=== PATIENT | female | born 1975 | race Asian ===

== ENCOUNTER 2019-07-02 16:50 | Emergency (ER) | payer OTHER, BC ==
[~2019-07-02] VITALS: Ht 157.5 cm; Wt 49.0 kg
[2019-07-02 17:23] VITALS: BP 113/71
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
[2019-07-02] MEDS ORDERED: ORPH100T PO (18:56)
[2019-07-02] MEDS ORDERED: IBUP-1027 PO (18:56)
== END 2019-07-02 19:02 | disposition home or self-care (01) ==
LOC: ER 16:50
DX: R51 Headache (principal); G89.11 Acute pain due to trauma; M54.5 Low back pain; M54.6 Pain in thoracic spine; M54.2 Cervicalgia; Z88.0 Allergy status to penicillin; V47.5XXA Car driver injured in collision with fixed or stationary object in traffic accident, initial encounter; Y93.89 Activity, other specified; Y92.488 Other paved roadways as the place of occurrence of the external cause; Y99.8 Other external cause status
CPT/HCPCS: 70450; 72125; 72128; 72131; 99284

== ENCOUNTER 2020-03-29 17:23 | Emergency (ER) | payer BC, OTHER ==
[~2020-03-29] VITALS: Ht 144.8 cm; Wt 50.0 kg
[~2020-03-29 17:23] MED LIST: IBUP-1027 PO; ORPH100T PO
[2020-03-29 20:11] LABS: BILIRUBIN,URINE NEGATIVE (NEG); CLARITY,URINE CLEAR; COLOR,URINE RED; NITRITE,URINE NEGATIVE (NEG); PROTEIN,URINE 100 mg/dL (NEG-TRACE); UROBILINOGEN,URINE 0.2 mg/dL (0.2 mg/dL)
[2020-03-29 20:24] LABS: BACTERIA,URINE FEW /HPF (0-FEW); RBC,URINE TNTC /HPF (0-2); WBC,URINE >40 /HPF (0-4)
[2020-03-29 20:26] LABS: AMPHETAMINE/METHAMPHETAMINE NEG (NEG); BARBITURATES NEG (NEG); BENZODIAZEPINES NEG (NEG); CANNABINOIDS NEG (NEG); COCAINE NEG (NEG); METHADONE NEG (NEG); OPIATES NEG (NEG); PHENCYCLIDINE NEG (NEG)
[2020-03-29 20:30] LABS: BASO % 1 % (0-3); EOS # 0.1 x10^3/uL (0.0-0.7); EOS % 1 % (0-3); HEMATOCRIT 38.3 % (36.0-47.0); HEMOGLOBIN 13.4 g/dL (12.0-15.5); LYMPH # 1.8 x10^3/uL (1.0-4.8); LYMPH % 23 % (24-48); MEAN CORPUSCULAR HEMOGLOBIN 33 pg (25-35); MEAN CORPUSCULAR HGB CONC 35 g/dL (31-37); MEAN CORPUSCULAR VOLUME 95 fL (79-100); MONO # 0.6 x10^3/uL (0.0-1.1); MONO % 8 % (0-9); NEUT # 5.1 x10^3/uL (1.8-7.7); NEUT % 67 % (31-73); PLATELET COUNT 184 x10^3/uL (140-400); RED BLOOD COUNT 4.02 x10^6/uL (3.50-5.40); RED CELL DISTRIBUTION WIDTH 12.5 % (11.5-14.5); WHITE BLOOD COUNT 7.6 x10^3/uL (4.0-11.0)
[2020-03-29 20:42] LABS: CALCIUM 8.7 mg/dL (8.5-10.1); CREATININE 0.6 mg/dL (0.6-1.0); GFR 107.6; POTASSIUM 3.5 mmol/L (3.5-5.1)
[2020-03-29] MEDS ORDERED: ONDANSETRON PF 4 MG/2 ML VIAL. IVP ONE (20:45)
[2020-03-29] MEDS ORDERED: MORPHINE SULFATE 10 MG/ML VIAL. IV ONE ×2 (20:45→22:00)
[2020-03-29 20:48] LABS: ALBUMIN 3.8 g/dL (3.4-5.0); TOTAL BILIRUBIN 0.6 mg/dL (0.2-1.0); TOTAL PROTEIN 7.6 g/dL (6.4-8.2)
--- NOTE | 2020-03-29 21:00 | RAD ---
Study: CT abdomen/pelvis without intravenous contrast Indication: Bilateral flank pain. Comparison: None. Technique: Helical CT imaging performed of the abdomen and pelvis without the use of intravenous contrast. Sagittal and coronal reformats were obtained. One or more of the following individualized dose reduction techniques were utilized for this examination: 1. Automated exposure control 2. Adjustment of the mA and/or kV according to patient size 3. Use of iterative reconstruction technique. Findings: Inherently limited evaluation without intravenous contrast. Inflammatory thickening of the urinary bladder wall and inflammatory changes of the pericystic fat. No hydronephrosis. No perinephric inflammatory changes. No stone is visualized. Possible tiny angiomyolipoma on the left, image 60 series 2 though this could be interdigitation of perinephric fat. No acute abnormality at the lower chest. Unremarkable liver, gallbladder, pancreas, spleen and adrenal glands. Small fat-containing focus within the left ovary, image 152 series 2, typical of a dermoid cyst measuring up to 0.7 cm. Unremarkable right adnexa. Small amount of fluid posterior to the uterus measuring slightly greater density than simple fluid at between 16-20 Hounsfield units. No discrete abnormality of the uterus itself. No acute abnormality of the colon. The appendix is mildly prominent in transverse dimension at around 6.5 mm but there are no surrounding inflammatory changes to suggest acute appendicitis. Nonobstructed small bowel. Unremarkable stomach. Nonaneurysmal aorta. No lymphadenopathy. No pneumoperitoneum. No acute or aggressive osseous process. Impression: 1. Inflammatory wall thickening of the urinary bladder and inflammatory changes of the pericystic fat. The findings are typical of cystitis especially given history. No findings that would confirm pyelonephritis on this noncontrast exam. No collecting system obstruction or stone. 2. Small amount of fluid within the pelvis that is slightly more dense than simple fluid but still favored reactive to the presumed cystitis. 3. Subcentimeter left ovarian dermoid cyst. Electronically signed by: LUIS CARLOS OLSON MD (03/29/2020 8:57 PM) [facility]
[2020-03-29] MEDS ORDERED: CIPROFLOXACIN 400MG PREMIX 200 ML IV ONE (21:30)
[2020-03-29] MEDS ORDERED: KETOROLAC 30 MG/ML VIAL. IVP ONE (22:00)
[2020-03-29] MEDS ORDERED: CIPR500T94 PO (22:34)
[2020-03-29] MEDS ORDERED: HYDR-2759 PO (22:34)
[2020-03-29] MEDS ORDERED: ONDA4TAB7 PO (22:34)
[2020-03-29] MEDS ORDERED: PHEN100T82 PO (22:34)
--- NOTE | 2020-03-29 22:35 | PHYS DOC ---
Past Medical History Past Medical History: No Pertinent History Past Surgical History: No Surgical History Smoking Status: Never Smoker Alcohol Use: None General Adult EDM: Chief Complaint: FLANK PAIN HPI: HPI: Patient is a 44 year old Bulgarian speaking patient who presents to the ED today complaining of mild periumbilical abdominal pain, bilateral flank pain, hematuria that began today. Patient denies any fever, nausea, vomiting. Denies anything specifically exacerbating or relieving her pain. Review of Systems: Review of Systems: Constitutional: Denies fever or chills. [] Eyes: Denies change in visual acuity. [] HENT: Denies nasal congestion or sore throat. [] Respiratory: Denies cough or shortness of breath. [] Cardiovascular: Denies chest pain or edema. [] GI: Reports periumbilical abdominal pain, denies nausea, vomiting, bloody stools or diarrhea. [] : Reports hematuria and flank pain Musculoskeletal: Denies back pain or joint pain. [] Integument: Denies rash. [] Neurologic: Denies headache, focal weakness or sensory changes. [] Psychiatric: Denies depression or anxiety. [] Heart Score: Risk Factors: Risk Factors: DM, Current or recent (<one month) smoker, HTN, HLP, family his tory of CAD, obesity. Risk Scores: Score 0 - 3: 2.5% MACE over next 6 weeks - Discharge Home Score 4 - 6: 20.3% MACE over next 6 weeks - Admit for Clinical Observation Score 7 - 10: 72.7% MACE over next 6 weeks - Early Invasive Strategies Current Medications: Current Medications Medications (Trade) Dose Ordered Sig/[facility] Start Time Stop Time Status Last Admin Dose Admin Ciprofloxacin/ Dextrose 200 ml @ 200 mls/hr 1X ONCE 03/29/20 21:30 03/29/20 22:29 03/29/20 22:13 200 MLS/HR Ketorolac Tromethamine (Toradol 30mg Vial) 30 mg 1X ONCE 03/29/20 22:00 03/29/20 22:01 DC 03/29/20 22:13 30 MG Morphine Sulfate (Morphine Sulfate) 5 mg 1X ONCE 03/29/20 22:00 03/29/20 22:01 DC 03/29/20 22:14 5 MG Ondansetron HCl (Zofran) 4 mg 1X ONCE 03/29/20 20:45 03/29/20 20:46 DC 03/29/20 20:27 4 MG Allergies: Allergies: Allergies Coded Allergies Type Severity Reaction Last Updated Verified Penicillins Allergy Severe Rash 07/02/19 Yes Physical Exam: PE: Constitutional: Well developed, well nourished, no acute distress, non-toxic appearance. [] HENT: Normocephalic, atraumatic, bilateral external ears normal, oropharynx moist, no oral exudates, nose normal. [] Eyes: PERRLA, EOMI, conjunctiva normal, no discharge. [] Neck: Normal range of motion, no tenderness, supple, no stridor. [] Cardiovascular:Heart rate regular rhythm, no murmur [] Lungs & Thorax: Bilateral breath sounds clear to auscultation [] Abdomen: Bowel sounds normal, soft, no tenderness, no masses, no pulsatile masses. [] Skin: Warm, dry, no erythema, no rash. [] Back: No tenderness, mild bilateral CVA tenderness. [] Extremities: No tenderness, no cyanosis, no clubbing, ROM intact, no edema. [] Neurologic: Alert and oriented X 3, normal motor function, normal sensory functi on, no focal deficits noted. [] Psychologic: Affect normal, judgement normal, mood normal. [] Current Patient Data: Labs: Laboratory Tests Test 03/29/20 19:30 03/29/20 20:05 03/29/20 20:08 03/29/20 20:15 Urine Collection Type Unknown Urine Color Red Urine Clarity Clear Urine pH 7.0 (<5.0-8.0) Urine Specific [place] <=1.005 (1.000-1.030) Urine Protein 100 mg/dL (NEG-TRACE) Urine Glucose (UA) Negative mg/dL (NEG) Urine Ketones (Stick) Trace mg/dL (NEG) Urine Blood Large (NEG) Urine Nitrite Negative (NEG) Urine Bilirubin Negative (NEG) Urine Urobilinogen Dipstick 0.2 mg/dL (0.2 mg/dL) Urine Leukocyte Esterase Large (NEG) Urine RBC Tntc /HPF (0-2) Urine WBC >40 /HPF (0-4) Urine Bacteria Few /HPF (0-FEW) Urine Opiates Screen Neg (NEG) Urine Methadone Screen Neg (NEG) Urine Barbiturates Neg (NEG) Urine Phencyclidine Screen Neg (NEG) Urine Amphetamine/Methamphetamine Neg (NEG) Urine Benzodiazepines Screen Neg (NEG) Urine Cocaine Screen Neg (NEG) Urine Cannabinoids Screen Neg (NEG) Urine Ethyl Alcohol Neg (NEG) POC Urine HCG, Qualitative Hcg negative (Negative) White Blood Count 7.6 x10^3/uL (4.0-11.0) Red Blood Count 4.02 x10^6/uL (3.50-5.40) Hemoglobin 13.4 g/dL (12.0-15.5) Hematocrit 38.3 % (36.0-47.0) Mean Corpuscular Volume 95 fL (79-100) Mean Corpuscular Hemoglobin 33 pg (25-35) Mean Corpuscular Hemoglobin Concent 35 g/dL (31-37) Red Cell Distribution Width 12.5 % (11.5-14.5) Platelet Count 184 x10^3/uL (140-400) Neutrophils (%) (Auto) 67 % (31-73) Lymphocytes (%) (Auto) 23 % (24-48) L Monocytes (%) (Auto) 8 % (0-9) Eosinophils (%) (Auto) 1 % (0-3) Basophils (%) (Auto) 1 % (0-3) Neutrophils # (Auto) 5.1 x10^3/uL (1.8-7.7) Lymphocytes # (Auto) 1.8 x10^3/uL (1.0-4.8) Monocytes # (Auto) 0.6 x10^3/uL (0.0-1.1) Eosinophils # (Auto) 0.1 x10^3/uL (0.0-0.7) Basophils # (Auto) 0.0 x10^3/uL (0.0-0.2) Sodium Level 142 mmol/L (136-145) Potassium Level 3.5 mmol/L (3.5-5.1) Chloride Level 106 mmol/L (98-107) Carbon Dioxide Level 28 mmol/L (21-32) Anion Gap 8 (6-14) Blood Urea Nitrogen 19 mg/dL (7-20) Creatinine 0.6 mg/dL (0.6-1.0) Estimated GFR (Cockcroft-Gault) 107.6 BUN/Creatinine Ratio 32 (6-20) H Glucose Level 100 mg/dL (70-99) H Calcium Level 8.7 mg/dL (8.5-10.1) Total Bilirubin 0.6 mg/dL (0.2-1.0) Aspartate Amino Transferase (AST) 29 U/L (15-37) Alanine Aminotransferase (ALT) 40 U/L (14-59) Alkaline Phosphatase 97 U/L (46-116) Total Protein 7.6 g/dL (6.4-8.2) Albumin 3.8 g/dL (3.4-5.0) Albumin/Globulin Ratio 1.0 (1.0-1.7) Lipase 180 U/L (73-393) Ethyl Alcohol Level < 10 mg/dL (0-10) Laboratory Tests 03/29/20 20:15 Laboratory Tests 03/29/20 20:15 Vital Signs: Vital Signs Date Time Temp Pulse Resp B/P (MAP) Pulse Ox O2 Delivery O2 Flow Rate FiO2 03/29/20 19:50 98.5 84 18 131/80 (97) 100 Room Air 98.5 EKG: EKG: [] Radiology/Procedures: Radiology/Procedures: []PROCEDURE: CT ABDOMEN PELVIS WO CONTRAST Study: CT abdomen/pelvis without intravenous contrast Indication: Bilateral flank pain. Comparison: None. Technique: Helical CT imaging performed of the abdomen and pelvis without the use of intravenous contrast. Sagittal and coronal reformats were obtained. One or more of the following individualized dose reduction techniques were utilized for this examination: 1. Automated exposure control 2. Adjustment of the mA and/or kV according to patient size 3. Use of iterative reconstruction technique. Findings: Inherently limited evaluation without intravenous contrast. Inflammatory thickening of the urinary bladder wall and inflammatory changes of the pericystic fat. No hydronephrosis. No perinephric inflammatory changes. No stone is visualized. Possible tiny angiomyolipoma on the left, image 60 series 2 though this could be interdigitation of perinephric fat. No acute abnormality at the lower chest. Unremarkable liver, gallbladder, pancreas, spleen and adrenal glands. Small fat-containing focus within the left ovary, image 152 series 2, typical of a dermoid cyst measuring up to 0.7 cm. Unremarkable right adnexa. Small amount of fluid posterior to the uterus measuring slightly greater density than simple fluid at between 16-20 Hounsfield units. No discrete abnormality of the uterus itself. No acute abnormality of the colon. The appendix is mildly prominent in transverse dimension at around 6.5 mm but there are no surrounding inflammatory changes to suggest acute appendicitis. Nonobstructed small bowel. Unremarkable stomach. Nonaneurysmal aorta. No lymphadenopathy. No pneumoperitoneum. No acute or aggressive osseous process. Impression: 1. Inflammatory wall thickening of the urinary bladder and inflammatory changes of the pericystic fat. The findings are typical of cystitis especially given history. No findings that would confirm pyelonephritis on this noncontrast exam. No collecting system obstruction or stone. 2. Small amount of fluid within the pelvis that is slightly more dense than simple fluid but still favored reactive to the presumed cystitis. 3. Subcentimeter left ovarian dermoid cyst. Electronically signed by: LUIS CARLOS OLSON MD (03/29/2020 8:57 PM) [id number] DICTATED and SIGNED BY: LUIS CARLOS OLSON MD DATE: 03/29/202056 Course & Med Decision Making: Course & Med Decision Making Pertinent Labs and Imaging studies reviewed. (See chart for details) This is a 44-year-old female patient presenting to the ED today complaining of flank pain hematuria and periumbilical abdominal pain since this morning. Positive for UTI, CBC with a normal WBC, CMP with no acute findings. CT of the abdomen and pelvic noted for cystitis and left dermoid cyst that i recommended following up with an OBGYN. Patient's pain is well controlled. She was given IV fluids, pain medicine and Cipro in the ED. She is allergic to penicillins. She was offered admission but declined. She was discharged with Cipro Zofran and hydrocodone for pain. Follow-up with her own doctor in a week. Instructed to push fluids. interpreted for John Calix Disclaimer: Yogi Disclaimer: This electronic medical record was generated, in whole or in part, using a voice recognition dictation system. Departure Departure Impression: Primary Impression: Acute cystitis Qualified Codes: N30.01 - Acute cystitis with hematuria Additional Impression: Dermoid cyst of left ovary Disposition: HOME SELF CARE/HOMELESS Condition: STABLE Referrals: NO PCP (PCP) follow up with your doctor in 1-2 weeks AMRITA EVANS MD follow up for Ovarian cyst. Patient Instructions: Ovarian Cyst, Urinary Tract Infection Additional Instructions: You were evaluated in the emergency room and noted to have urinary tract infection. Take the prescribed antibiotics until completed. Take the pain medicine as needed for pain. Push fluids. Follow-up with your doctor in 1 to 2 weeks. Come back to the ED at any point symptoms worsen. You have an small cyst on the left ovary it needs to be followed up with your OBGYN or the provided OBGYN Scripts Hydrocodone/Acetaminophen (Hydrocodone-Acetamin 5-325 mg) 1 Each Tablet 1 EACH PO Q6HRS PRN for PAIN, #14 TAB Prov: JEREMY ANNA APRN 03/29/20 Phenazopyridine Hcl (PYRIDIUM) 100 Mg Tablet 1 TAB PO TID for urinary discomfort for 2 Days, #6 TAB 0 Refills Prov: JEREMY ANNA APRN 03/29/20 Ondansetron Hcl (ZOFRAN) 4 Mg Tablet 1 TAB PO Q6HRS, #20 TAB Prov: JEREMY ANNA APRN 03/29/20 Ciprofloxacin Hcl (CIPRO) 500 Mg Tablet 1 TAB PO BID for 7 Days, #14 TAB 0 Refills Prov: JEREMY ANNA APRN 03/29/20 JEREMY ANNA APRN Mar 29, 2020 22:35
[2020-03-29 23:25] VITALS: BP 104/62
== END 2020-03-29 23:34 | disposition home or self-care (01) ==
LOC: ER 17:23
DX: N30.01 Acute cystitis with hematuria (principal); D27.1 Benign neoplasm of left ovary; Z88.0 Allergy status to penicillin
CPT/HCPCS: 36415; 74176; 80053; 80307; 81001; 81025; 83690; 85025; 87086; 96365; 96375; 96376; 99284; G0480; J0744; J1885; J2270; J2405